=== PATIENT | male | born 1960 | race Caucasian/White ===

== ENCOUNTER 2022-04-01 06:54 | Inpatient (IN) | payer OTHER, BC ==
[~2022-04-01] VITALS: Ht 175.3 cm; Wt 87.2 kg
[~2022-04-01 06:54] MED LIST: GABA800 PO; LORA2; METH5 PO; METO25ER; METO25ER PO; METO50 PO; MORP15ER; OXYC10ER PO; SERT50; TRAM50
[2022-04-01] MEDS ORDERED: JARDIANCE25 MG PO (07:26)
[2022-04-01] MEDS ORDERED: METF500 PO (07:26)
[2022-04-01] MEDS ORDERED: METO25 PO (07:26)
[2022-04-01] MEDS ORDERED: PREG200 PO (07:27)
[2022-04-01] MEDS ORDERED: ELIQUIS5 M2 PO (07:27)
[2022-04-01] MEDS ORDERED: ATOR40TA PO (07:27)
[2022-04-01 08:15] LABS: BASOPHILS ABSOLUTE AUTO 0.09 K/mm3 (0.00-0.23); BASOPHILS PERCENT AUTO 1 % (0-2); EOSINOPHILS ABSOLUTE AUTO 0.03 K/mm3 (0.00-0.68); EOSINOPHILS PERCENT AUTO 0 % (0-6); Hematocrit 38.3 % (37.0-53.0); Hemoglobin 12.8 g/dL (13.5-17.5); IMMATURE GRAN ABSOLUTE AUTO 0.09 K/mm3 (0.00-0.10); IMMATURE GRAN PERCENT AUTO 1 % (0-1); LYMPHOCYTES ABSOLUTE AUTO 0.99 K/mm3 (0.84-5.20); LYMPHOCYTES PERCENT AUTO 6 % (21-46); MONOCYTES ABSOLUTE AUTO 1.36 K/mm3 (0.16-1.47); MONOCYTES PERCENT AUTO 8 % (4-13); Mean Corpuscular HGB Conc 33.4 g/dL (31.5-36.5); Mean Corpuscular Volume 87 fL (80-100); Mean Platelet Volume 10.8 fL (9.1-12.4); NEUTROPHILS ABSOLUTE AUTO 14.51 K/mm3 (1.96-9.15); NEUTROPHILS PERCENT AUTO 85 % (41-73); Platelet Count 279 K/mm3 (150-400); RDW Coefficient Variation 13.3 % (11.7-14.2); RDW Standard Deviation 42.5 fL (35.1-46.3); Red Blood Cell Count 4.41 M/mm3 (4.30-5.90); White Blood Cell Count 17.07 K/mm3 (4.00-11.30)
[2022-04-01 08:45] LABS: Bun/Creatinine Ratio 22.9 (12.0-20.0); C-REACTIVE PROTEIN, EXT RANGE 17.7 mg/dL (0.000-0.300); Calcium, Blood 9.3 mg/dL (8.5-10.1); Creatinine, Blood 0.83 mg/dL (0.60-1.20); Magnesium, Blood 1.9 mg/dL (1.6-2.4); Potassium, Blood 4.2 mmol/L (3.5-5.5)
--- NOTE | 2022-04-01 18:42 | NUR ---
SHIFT SUMMARY PT S/P FOR AMPUTATION OF ALL TOES ON L FOOT DUE TO DM ULCER/OSTEOMYELITIS. PT IS TO BE NON-WEIGHT BEARING ON THE L FOOT. PT IS A/O X4 BUT FORGETFUL AT TIMES. TOLERATING PO INTAKE WELL AND VOIDING. VSS.
--- NOTE | 2022-04-01 22:47 | NUR ---
BLOOD SUGAR PT'S HS BLOOD SUGAR WAS 353, GAVE 4 UNITS HUMALOG AND NOTIFIED PROVIDER. NO NEW ORDERS
[2022-04-02 05:05] LABS: BASOPHILS ABSOLUTE AUTO 0.04 K/mm3 (0.00-0.23); BASOPHILS PERCENT AUTO 0 % (0-2); EOSINOPHILS PERCENT AUTO 0 % (0-6); Hematocrit 37.3 % (37.0-53.0); Hemoglobin 12.4 g/dL (13.5-17.5); IMMATURE GRAN ABSOLUTE AUTO 0.07 K/mm3 (0.00-0.10); IMMATURE GRAN PERCENT AUTO 1 % (0-1); LYMPHOCYTES ABSOLUTE AUTO 1.23 K/mm3 (0.84-5.20); LYMPHOCYTES PERCENT AUTO 9 % (21-46); MONOCYTES ABSOLUTE AUTO 1.04 K/mm3 (0.16-1.47); MONOCYTES PERCENT AUTO 7 % (4-13); Mean Corpuscular HGB Conc 33.2 g/dL (31.5-36.5); Mean Corpuscular Volume 87 fL (80-100); Mean Platelet Volume 10.6 fL (9.1-12.4); NEUTROPHILS ABSOLUTE AUTO 11.84 K/mm3 (1.96-9.15); NEUTROPHILS PERCENT AUTO 83 % (41-73); Platelet Count 325 K/mm3 (150-400); RDW Coefficient Variation 13.3 % (11.7-14.2); RDW Standard Deviation 43.3 fL (35.1-46.3); Red Blood Cell Count 4.27 M/mm3 (4.30-5.90); White Blood Cell Count 14.22 K/mm3 (4.00-11.30)
[2022-04-02 06:22] LABS: Albumin, Blood 2.8 g/dL (3.4-5.0); Albumin/Globulin Ratio 0.6 (0.8-1.8); Bilirubin, Total 0.4 mg/dL (0.1-1.0); Bun/Creatinine Ratio 23.7 (12.0-20.0); Calcium, Blood 9.2 mg/dL (8.5-10.1); Creatinine, Blood 0.85 mg/dL (0.60-1.20); Globulin, Blood 4.9 g/dL (2.2-4.0); Potassium, Blood 3.8 mmol/L (3.5-5.5); Total Protein, Blood 7.7 g/dL (6.4-8.2)
--- NOTE | 2022-04-02 06:37 | NUR ---
SHIFT SUMMARY A&OX4, BUT CAN BE FORGETFUL. COOPERATIVE WITH CARE. NO ACUTE CHANGES. PT DID NOT NEED PAIN COVERAGE THIS SHIFT. VOIDING USING BEDSIDE URINAL. TOLERATING PO INTAKE. NICKY WRAP TO FOOT C/D/I. CALLS APPROPRIATELY, CALL LIGHT WITHIN REACH.
[2022-04-02] MEDS ORDERED: VISBIOME 112.51 EACH PO (14:23)
[2022-04-02] MEDS ORDERED: AMOCLA875 PO (14:24)
--- NOTE | 2022-04-02 16:18 | NUR ---
SHIFT SUMMARY POD1 L TMA, A/OX4, VSS, TOLERATING PO, PAIN MANAGED WITHOUT PAIN MEDICATIONS, ABLE TO WALK WITH FWW. DISUSSED DISCHARGE INFORMATION WITH THE PATIENT AND HIS INCLUDING HOME CARE, MEDICATIONS, HOME HEALTH REFERRAL, FOLLOW UP APPOINTMENTS, AND CONTACT INFORAMTION SHOULD Q UESTIONS COME UP AFTER DISCHARGE. NO QUESTIONS AT THIS TIME, PROVIDED 2 ADDITIONAL NICKY WRAPS TO KEEP DRESSINGS CLEAN. IV ACCESS REMOVED AND NO OTHER DEVICES IN PLACE. PT ESCORTED OUT VIA WC TO PRIVATE AUTO TO GO HOME.
== END 2022-04-02 16:08 | disposition home health service (06) | DRG 854 ==
LOC: ER 06:54 → ERHOLD 11:46 → SURS 11:46
PROVIDERS: Podiatrist Foot & Ankle Surgery; Student in an Organized Health Care Education/Training Program; ADMIT Internal Medicine
PROC: 0Y6N0ZB Detachment at Left Foot, Partial 2nd Ray, Open Approach (ICD-10-PCS; 2022-04-01)
PROC: 0Y6N0ZC Detachment at Left Foot, Partial 3rd Ray, Open Approach (ICD-10-PCS; 2022-04-01)
PROC: 0Y6N0ZD Detachment at Left Foot, Partial 4th Ray, Open Approach (ICD-10-PCS; 2022-04-01)
PROC: 0Y6N0ZF Detachment at Left Foot, Partial 5th Ray, Open Approach (ICD-10-PCS; 2022-04-01)
PROC: 3E03329 Introduction of Other Anti-infective into Peripheral Vein, Percutaneous Approach (ICD-10-PCS; 2022-04-01)
PROC: 0Y6N0Z9 Detachment at Left Foot, Partial 1st Ray, Open Approach (ICD-10-PCS; principal; 2022-04-01 08:30)
DX: A40.1 Sepsis due to streptococcus, group B (principal); E11.52 Type 2 diabetes mellitus with diabetic peripheral angiopathy with gangrene; E87.1 Hypo-osmolality and hyponatremia; M86.172 Other acute osteomyelitis, left ankle and foot; L03.116 Cellulitis of left lower limb; L97.529 Non-pressure chronic ulcer of other part of left foot with unspecified severity; E11.621 Type 2 diabetes mellitus with foot ulcer; Z96.641 Presence of right artificial hip joint; E11.42 Type 2 diabetes mellitus with diabetic polyneuropathy; I25.10 Atherosclerotic heart disease of native coronary artery without angina pectoris; I48.91 Unspecified atrial fibrillation; F31.9 Bipolar disorder, unspecified; Z88.8 Allergy status to other drugs, medicaments and biological substances; Z88.5 Allergy status to narcotic agent; Z87.891 Personal history of nicotine dependence; Z79.84 Long term (current) use of oral hypoglycemic drugs; Z79.01 Long term (current) use of anticoagulants; Z79.899 Other long term (current) drug therapy
CPT/HCPCS: 36415; 73701; 80048; 80053; 82947; 83605; 83735; 85025; 85651; 86140; 87070; 87075; 87076; 87147; 87205; 96365-59; 96367-59; 97110; 97116; 97161; 99285-25; A9270; J0330; J0692; J1100; J1885; J2405; J2704; J2765; J2795; J3010; J3370; J7030; J7050; J7120; Q9967

== ENCOUNTER 2022-04-20 00:19 | Day surgery (SDC) | payer BC ==
[~2022-04-20 00:19] MED LIST changes: +AMOCLA875 PO; +ATOR40TA PO; +ELIQUIS5 M2 PO; +JARDIANCE25 MG PO; +METF500 PO; +METO25 PO; +PREG200 PO; +VISBIOME 112.51 EACH PO
== END 2022-04-20 22:38 | disposition home or self-care (01) ==
LOC: WOUND 00:19
DX: E11.621 Type 2 diabetes mellitus with foot ulcer (principal); E11.21 Type 2 diabetes mellitus with diabetic nephropathy; L97.822 Non-pressure chronic ulcer of other part of left lower leg with fat layer exposed; T87.81 Dehiscence of amputation stump
CPT/HCPCS: A9270; G0463

== ENCOUNTER 2022-04-27 01:42 | Day surgery (SDC) | payer BC | END 2022-04-27 22:33 | disposition home or self-care (01) | LOC: WOUND 01:42 | DX: T87.81 Dehiscence of amputation stump (principal); E11.621 Type 2 diabetes mellitus with foot ulcer; E11.21 Type 2 diabetes mellitus with diabetic nephropathy; E11.40 Type 2 diabetes mellitus with diabetic neuropathy, unspecified | CPT/HCPCS: A9270 ==

== ENCOUNTER 2022-05-04 01:12 | Day surgery (SDC) | payer BC | END 2022-05-05 22:37 | disposition home or self-care (01) | LOC: WOUND 01:12 | DX: T87.81 Dehiscence of amputation stump (principal); E11.621 Type 2 diabetes mellitus with foot ulcer; L97.526 Non-pressure chronic ulcer of other part of left foot with bone involvement without evidence of necrosis; E11.21 Type 2 diabetes mellitus with diabetic nephropathy | CPT/HCPCS: A9270; G0463 ==

== ENCOUNTER 2022-05-11 00:04 | Day surgery (SDC) | payer BC | END 2022-05-11 22:35 | disposition home or self-care (01) | LOC: WOUND 00:04 | DX: E11.621 Type 2 diabetes mellitus with foot ulcer (principal); L97.522 Non-pressure chronic ulcer of other part of left foot with fat layer exposed; T87.81 Dehiscence of amputation stump; Y83.5 Amputation of limb(s) as the cause of abnormal reaction of the patient, or of later complication, without mention of misadventure at the time of the procedure; E11.21 Type 2 diabetes mellitus with diabetic nephropathy | CPT/HCPCS: A9270 ==

== ENCOUNTER 2022-05-18 01:40 | Day surgery (SDC) | payer BC | END 2022-05-18 23:06 | disposition home or self-care (01) | LOC: WOUND 01:40 | DX: E11.621 Type 2 diabetes mellitus with foot ulcer (principal); E11.21 Type 2 diabetes mellitus with diabetic nephropathy | CPT/HCPCS: G0463 ==

== ENCOUNTER 2022-05-25 00:43 | Day surgery (SDC) | payer BC | END 2022-05-25 22:46 | disposition home or self-care (01) | LOC: WOUND 00:43 | DX: E11.621 Type 2 diabetes mellitus with foot ulcer (principal); L97.522 Non-pressure chronic ulcer of other part of left foot with fat layer exposed; E11.21 Type 2 diabetes mellitus with diabetic nephropathy; I25.10 Atherosclerotic heart disease of native coronary artery without angina pectoris; Z95.1 Presence of aortocoronary bypass graft | CPT/HCPCS: A9270 ==

== ENCOUNTER 2022-06-08 01:52 | Day surgery (SDC) | payer BC | END 2022-06-08 23:03 | disposition home or self-care (01) | LOC: WOUND 01:52 | DX: E11.621 Type 2 diabetes mellitus with foot ulcer (principal); E11.21 Type 2 diabetes mellitus with diabetic nephropathy; L97.509 Non-pressure chronic ulcer of other part of unspecified foot with unspecified severity | CPT/HCPCS: G0463 ==

== ENCOUNTER 2022-06-15 02:17 | Day surgery (SDC) | payer BC | END 2022-06-15 22:40 | disposition home or self-care (01) | LOC: WOUND 02:17 | DX: T87.89 Other complications of amputation stump (principal); E11.621 Type 2 diabetes mellitus with foot ulcer; E11.21 Type 2 diabetes mellitus with diabetic nephropathy ==

== ENCOUNTER 2022-06-29 02:18 | Day surgery (SDC) | payer BC | END 2022-06-29 22:43 | disposition home or self-care (01) | LOC: WOUND 02:18 | DX: T87.89 Other complications of amputation stump (principal); E11.621 Type 2 diabetes mellitus with foot ulcer; E11.21 Type 2 diabetes mellitus with diabetic nephropathy; T87.81 Dehiscence of amputation stump | CPT/HCPCS: G0463 ==

== ENCOUNTER 2022-07-06 00:06 | Day surgery (SDC) | payer BC | END 2022-07-06 22:57 | disposition home or self-care (01) | LOC: WOUND 00:06 | DX: E11.621 Type 2 diabetes mellitus with foot ulcer (principal); L97.522 Non-pressure chronic ulcer of other part of left foot with fat layer exposed; T87.81 Dehiscence of amputation stump; E11.21 Type 2 diabetes mellitus with diabetic nephropathy; Z89.432 Acquired absence of left foot | CPT/HCPCS: G0463 ==

== ENCOUNTER 2022-07-13 00:56 | Day surgery (SDC) | payer BC | END 2022-07-13 22:52 | disposition home or self-care (01) | LOC: WOUND 00:56 | DX: E11.621 Type 2 diabetes mellitus with foot ulcer (principal); L97.522 Non-pressure chronic ulcer of other part of left foot with fat layer exposed; T87.81 Dehiscence of amputation stump; E11.21 Type 2 diabetes mellitus with diabetic nephropathy; Z89.432 Acquired absence of left foot; E11.40 Type 2 diabetes mellitus with diabetic neuropathy, unspecified; I25.10 Atherosclerotic heart disease of native coronary artery without angina pectoris; Z95.1 Presence of aortocoronary bypass graft | CPT/HCPCS: A9270 ==

== ENCOUNTER 2022-07-20 03:31 | Day surgery (SDC) | payer BC | END 2022-07-20 22:36 | disposition home or self-care (01) | LOC: WOUND 03:31 | DX: E11.621 Type 2 diabetes mellitus with foot ulcer (principal); L97.522 Non-pressure chronic ulcer of other part of left foot with fat layer exposed; E11.21 Type 2 diabetes mellitus with diabetic nephropathy; T87.81 Dehiscence of amputation stump; Z89.432 Acquired absence of left foot; E11.40 Type 2 diabetes mellitus with diabetic neuropathy, unspecified; I25.10 Atherosclerotic heart disease of native coronary artery without angina pectoris; Z95.1 Presence of aortocoronary bypass graft | CPT/HCPCS: A9270 ==

== ENCOUNTER 2022-07-27 01:57 | Day surgery (SDC) | payer BC | END 2022-07-27 22:55 | disposition home or self-care (01) | LOC: WOUND 01:57 | DX: E11.621 Type 2 diabetes mellitus with foot ulcer (principal); L97.522 Non-pressure chronic ulcer of other part of left foot with fat layer exposed; T87.81 Dehiscence of amputation stump; Y83.8 Other surgical procedures as the cause of abnormal reaction of the patient, or of later complication, without mention of misadventure at the time of the procedure; E11.21 Type 2 diabetes mellitus with diabetic nephropathy; Z89.432 Acquired absence of left foot | CPT/HCPCS: G0463 ==

== ENCOUNTER 2022-08-03 00:40 | Day surgery (SDC) | payer BC | END 2022-08-04 22:39 | disposition home or self-care (01) | LOC: WOUND 00:40 | DX: T87.81 Dehiscence of amputation stump (principal); E11.621 Type 2 diabetes mellitus with foot ulcer; L97.522 Non-pressure chronic ulcer of other part of left foot with fat layer exposed; E11.21 Type 2 diabetes mellitus with diabetic nephropathy; Y83.9 Surgical procedure, unspecified as the cause of abnormal reaction of the patient, or of later complication, without mention of misadventure at the time of the procedure; Z89.432 Acquired absence of left foot | CPT/HCPCS: G0463 ==

== ENCOUNTER 2022-08-10 01:17 | Day surgery (SDC) | payer BC | END 2022-08-12 22:34 | disposition home or self-care (01) | LOC: WOUND 01:17 | DX: E11.621 Type 2 diabetes mellitus with foot ulcer (principal); L97.522 Non-pressure chronic ulcer of other part of left foot with fat layer exposed; T87.81 Dehiscence of amputation stump; E11.21 Type 2 diabetes mellitus with diabetic nephropathy; Z89.432 Acquired absence of left foot; I25.10 Atherosclerotic heart disease of native coronary artery without angina pectoris; Z95.1 Presence of aortocoronary bypass graft | CPT/HCPCS: G0463 ==

== ENCOUNTER 2022-08-17 02:27 | Day surgery (SDC) | payer BC | END 2022-08-19 22:48 | disposition home or self-care (01) | LOC: WOUND 02:27 | DX: E11.621 Type 2 diabetes mellitus with foot ulcer (principal); E11.21 Type 2 diabetes mellitus with diabetic nephropathy; T87.81 Dehiscence of amputation stump; Z89.432 Acquired absence of left foot | CPT/HCPCS: A9270; G0463 ==

== ENCOUNTER 2022-10-26 01:27 | Day surgery (SDC) | payer BC | END 2022-10-26 22:51 | disposition home or self-care (01) | LOC: WOUND 01:27 | DX: E11.621 Type 2 diabetes mellitus with foot ulcer (principal); I25.10 Atherosclerotic heart disease of native coronary artery without angina pectoris; Z95.1 Presence of aortocoronary bypass graft; Z87.891 Personal history of nicotine dependence; Z88.8 Allergy status to other drugs, medicaments and biological substances; Z88.5 Allergy status to narcotic agent; T87.81 Dehiscence of amputation stump; E11.40 Type 2 diabetes mellitus with diabetic neuropathy, unspecified | CPT/HCPCS: G0463 ==

== ENCOUNTER 2022-11-02 00:41 | Day surgery (SDC) | payer BC | END 2022-11-02 22:35 | disposition home or self-care (01) | LOC: WOUND 00:41 | DX: E11.621 Type 2 diabetes mellitus with foot ulcer (principal); L97.522 Non-pressure chronic ulcer of other part of left foot with fat layer exposed; I87.2 Venous insufficiency (chronic) (peripheral); I25.10 Atherosclerotic heart disease of native coronary artery without angina pectoris; Z95.1 Presence of aortocoronary bypass graft | CPT/HCPCS: A9270 ==

== ENCOUNTER 2022-11-09 02:24 | Day surgery (SDC) | payer BC | END 2022-11-09 22:49 | disposition home or self-care (01) | LOC: WOUND 02:24 | DX: T87.81 Dehiscence of amputation stump (principal); E11.621 Type 2 diabetes mellitus with foot ulcer | CPT/HCPCS: G0463 ==

== ENCOUNTER 2022-11-14 02:46 | Day surgery (SDC) | payer BC | END 2022-11-14 22:42 | disposition home or self-care (01) | LOC: WOUND 02:46 | DX: E11.621 Type 2 diabetes mellitus with foot ulcer (principal); L97.522 Non-pressure chronic ulcer of other part of left foot with fat layer exposed; I25.10 Atherosclerotic heart disease of native coronary artery without angina pectoris; T87.81 Dehiscence of amputation stump; Z95.1 Presence of aortocoronary bypass graft; E11.40 Type 2 diabetes mellitus with diabetic neuropathy, unspecified | CPT/HCPCS: G0463 ==

== ENCOUNTER 2022-11-28 00:53 | Day surgery (SDC) | payer BC | END 2022-11-28 22:57 | disposition home or self-care (01) | LOC: WOUND 00:53 | DX: E11.621 Type 2 diabetes mellitus with foot ulcer (principal); L97.522 Non-pressure chronic ulcer of other part of left foot with fat layer exposed; I87.2 Venous insufficiency (chronic) (peripheral); I25.10 Atherosclerotic heart disease of native coronary artery without angina pectoris; Z95.1 Presence of aortocoronary bypass graft; T87.81 Dehiscence of amputation stump ==

== ENCOUNTER 2022-11-30 01:43 | Day surgery (SDC) | payer BC | END 2022-11-30 22:44 | disposition home or self-care (01) | LOC: WOUND 01:43 | DX: E11.621 Type 2 diabetes mellitus with foot ulcer (principal); L97.522 Non-pressure chronic ulcer of other part of left foot with fat layer exposed; T87.81 Dehiscence of amputation stump; I25.10 Atherosclerotic heart disease of native coronary artery without angina pectoris; Z95.1 Presence of aortocoronary bypass graft ==

== ENCOUNTER 2022-12-07 00:36 | Day surgery (SDC) | payer BC | END 2022-12-07 23:06 | disposition home or self-care (01) | LOC: WOUND 00:36 | DX: E11.621 Type 2 diabetes mellitus with foot ulcer (principal); L97.522 Non-pressure chronic ulcer of other part of left foot with fat layer exposed; T87.81 Dehiscence of amputation stump; Y83.8 Other surgical procedures as the cause of abnormal reaction of the patient, or of later complication, without mention of misadventure at the time of the procedure; E11.40 Type 2 diabetes mellitus with diabetic neuropathy, unspecified ==

== ENCOUNTER 2022-12-12 04:45 | Day surgery (SDC) | payer BC | END 2022-12-12 22:38 | disposition home or self-care (01) | LOC: WOUND 04:45 | DX: E11.621 Type 2 diabetes mellitus with foot ulcer (principal); L97.522 Non-pressure chronic ulcer of other part of left foot with fat layer exposed; E11.40 Type 2 diabetes mellitus with diabetic neuropathy, unspecified; T87.81 Dehiscence of amputation stump; I25.10 Atherosclerotic heart disease of native coronary artery without angina pectoris; Z95.1 Presence of aortocoronary bypass graft ==

== ENCOUNTER 2022-12-13 08:38 | Day surgery (SDC) | payer BC | END 2022-12-13 22:36 | disposition home or self-care (01) | LOC: WOUND 08:38 | DX: E11.621 Type 2 diabetes mellitus with foot ulcer (principal); L97.522 Non-pressure chronic ulcer of other part of left foot with fat layer exposed; T87.81 Dehiscence of amputation stump; E11.40 Type 2 diabetes mellitus with diabetic neuropathy, unspecified; I25.10 Atherosclerotic heart disease of native coronary artery without angina pectoris; Z95.1 Presence of aortocoronary bypass graft ==

== ENCOUNTER 2022-12-28 00:26 | Day surgery (SDC) | payer BC | END 2022-12-28 22:43 | disposition home or self-care (01) | LOC: WOUND 00:26 | DX: E11.621 Type 2 diabetes mellitus with foot ulcer (principal); L97.522 Non-pressure chronic ulcer of other part of left foot with fat layer exposed; E11.40 Type 2 diabetes mellitus with diabetic neuropathy, unspecified; I25.10 Atherosclerotic heart disease of native coronary artery without angina pectoris; T87.81 Dehiscence of amputation stump; Z95.1 Presence of aortocoronary bypass graft | CPT/HCPCS: G0463 ==

== ENCOUNTER 2023-01-04 02:26 | Day surgery (SDC) | payer BC | END 2023-01-04 22:40 | disposition home or self-care (01) | LOC: WOUND 02:26 | DX: E11.621 Type 2 diabetes mellitus with foot ulcer (principal); L97.522 Non-pressure chronic ulcer of other part of left foot with fat layer exposed; I25.10 Atherosclerotic heart disease of native coronary artery without angina pectoris; T87.81 Dehiscence of amputation stump; I25.2 Old myocardial infarction; Z95.1 Presence of aortocoronary bypass graft | CPT/HCPCS: G0463 ==

== ENCOUNTER 2023-01-11 05:06 | Day surgery (SDC) | payer BC | END 2023-01-11 22:36 | disposition home or self-care (01) | LOC: WOUND 05:06 | DX: Z09 Encounter for follow-up examination after completed treatment for conditions other than malignant neoplasm (principal); Z86.31 Personal history of diabetic foot ulcer; Z89.422 Acquired absence of other left toe(s); I25.10 Atherosclerotic heart disease of native coronary artery without angina pectoris; Z95.1 Presence of aortocoronary bypass graft | CPT/HCPCS: G0463 ==

== ENCOUNTER 2023-03-02 16:10 | Inpatient (IN) | payer OTHER, BC ==
[~2023-03-02] VITALS: Ht 172.7 cm; Wt 95.2 kg
[2023-03-02 17:00] LABS: BASOPHILS ABSOLUTE AUTO 0.05 K/mm3 (0.00-0.23); BASOPHILS PERCENT AUTO 0 % (0-2); EOSINOPHILS ABSOLUTE AUTO 0.04 K/mm3 (0.00-0.68); EOSINOPHILS PERCENT AUTO 0 % (0-6); Hematocrit 39.8 % (37.0-53.0); Hemoglobin 13.1 g/dL (13.5-17.5); IMMATURE GRAN ABSOLUTE AUTO 0.25 K/mm3 (0.00-0.10); IMMATURE GRAN PERCENT AUTO 1 % (0-1); LYMPHOCYTES ABSOLUTE AUTO 1.06 K/mm3 (0.84-5.20); LYMPHOCYTES PERCENT AUTO 5 % (21-46); MONOCYTES ABSOLUTE AUTO 1.81 K/mm3 (0.16-1.47); MONOCYTES PERCENT AUTO 9 % (4-13); Mean Corpuscular HGB Conc 32.9 g/dL (31.5-36.5); Mean Corpuscular Volume 88 fL (80-100); Mean Platelet Volume 11.9 fL (9.1-12.4); NEUTROPHILS ABSOLUTE AUTO 17.38 K/mm3 (1.96-9.15); NEUTROPHILS PERCENT AUTO 85 % (41-73); Platelet Count 188 K/mm3 (150-400); RDW Coefficient Variation 15.2 % (11.7-14.2); RDW Standard Deviation 48.9 fL (35.1-46.3); Red Blood Cell Count 4.51 M/mm3 (4.30-5.90); White Blood Cell Count 20.59 K/mm3 (4.00-11.30)
[2023-03-02 17:14] LABS: Albumin, Blood 3.3 g/dL (3.4-5.0); Albumin/Globulin Ratio 0.7 (0.8-1.8); Bilirubin, Total 0.7 mg/dL (0.1-1.0); Bun/Creatinine Ratio 15.7 (12.0-20.0); Calcium, Blood 9.5 mg/dL (8.5-10.1); Creatinine, Blood 1.02 mg/dL (0.60-1.20); Globulin, Blood 4.7 g/dL (2.2-4.0); Potassium, Blood 3.8 mmol/L (3.5-5.5)
[2023-03-02 17:53] LABS: Influenza A, PCR NEGATIVE (NEGATIVE); Influenza B, PCR NEGATIVE (NEGATIVE); Resp Syncytial Virus, PCR NEGATIVE (NEGATIVE); SARS-Cov-2 (COVID-19) PCR, MMC NEGATIVE (NEGATIVE)
[2023-03-02 20:55] VITALS: BP 117/69
--- NOTE | 2023-03-02 20:55 | NUR ---
NEW ADMIT. PATIENT NEW ADMIT TO ROOM 310 FROM THE ER. PATIENT ARRIVED TO FLOOR BY [facility]. PATIENT SELF TRANSFERED WITH SBA FROM THE [facility] TO HOSPITAL BED. PATIENT ARRIVED WEARING A SOFT BOOT ON HIS LEFT FOOT-THIS IS THE FOOT WITH THE DIABETIC ULCER. BANDAGE TO FOOT WAS CHANGED IN THE ED. PATIENT CAME TO THE ROOM WITH AT SIDE AND PERSONAL BELONGINGS BAG.
[2023-03-02] MEDS ORDERED: PIOG30 PO (21:06)
[2023-03-02] MEDS ORDERED: ALOGLIPTIN25 M7 PO (21:06)
[2023-03-03 03:52] VITALS: BP 137/86
--- NOTE | 2023-03-03 04:27 | NUR ---
SHIFT SUMMARY. PATIENT IS A/O X4 WITH SOME CONFUSION. PATIENT IS PLEASANT, COOPERATIVE WITH CARE, CALLS APPROPRIATELY, AND ABLE TO MAKE HIS NEEDS KNOWN. PATIENT USING THE URINAL AT BEDSIDE. PATIENT 1 PERSON ASSIST TO THE BSC. PATIENT HAS A SOFT BOOT TO THE LEFT FOOT FOR HIS LEFT FOOT DIABETIC ULCER. PATIENT IS NPO AT MIDNIGHT. PATIENT PROVIDED WITH MOUTH MOISURIZER AND MOUTH SWAPS FOR DRY MOUTH R/T NPO. PATIENT HAS HAD RIGHT HIP PAIN AND A DECREASE IN MOBILITY THAT HAD BROUGHT HIM INTO THE HOSPITAL TO BE SEEN THIS ADMIT. PATIENT REPORTS HE HAS ONLY BEEN ABLE TO SLEEP A COUPLE HOURS THIS EVENING. WOUND CLEANED AND DRESSING CHANGED-PICTURES OBTAIN IN CHART. BED IS LOCKED IN THE LOWEST POSITION WITH CALL LIGHT IN REACH.
[2023-03-03 05:33] LABS: BASOPHILS ABSOLUTE AUTO 0.07 K/mm3 (0.00-0.23); BASOPHILS PERCENT AUTO 0 % (0-2); EOSINOPHILS ABSOLUTE AUTO 0.01 K/mm3 (0.00-0.68); EOSINOPHILS PERCENT AUTO 0 % (0-6); Hematocrit 34.5 % (37.0-53.0); Hemoglobin 11.2 g/dL (13.5-17.5); IMMATURE GRAN ABSOLUTE AUTO 0.62 K/mm3 (0.00-0.10); IMMATURE GRAN PERCENT AUTO 3 % (0-1); LYMPHOCYTES PERCENT AUTO 5 % (21-46); MONOCYTES ABSOLUTE AUTO 1.99 K/mm3 (0.16-1.47); MONOCYTES PERCENT AUTO 10 % (4-13); Mean Corpuscular HGB 29.2 pg (26.0-34.0); Mean Corpuscular HGB Conc 32.5 g/dL (31.5-36.5); Mean Corpuscular Volume 90 fL (80-100); Mean Platelet Volume 11.9 fL (9.1-12.4); NEUTROPHILS ABSOLUTE AUTO 16.12 K/mm3 (1.96-9.15); NEUTROPHILS PERCENT AUTO 81 % (41-73); Platelet Count 157 K/mm3 (150-400); RDW Coefficient Variation 15.4 % (11.7-14.2); RDW Standard Deviation 50.9 fL (35.1-46.3); Red Blood Cell Count 3.83 M/mm3 (4.30-5.90); White Blood Cell Count 19.81 K/mm3 (4.00-11.30)
[2023-03-03 05:38] LABS: International Normalized Ratio 0.98; Prothrombin Time Results 10.3 Sec (9.7-11.5)
[2023-03-03 05:58] LABS: Albumin, Blood 2.6 g/dL (3.4-5.0); Albumin/Globulin Ratio 0.6 (0.8-1.8); Bilirubin, Total 0.5 mg/dL (0.1-1.0); Bun/Creatinine Ratio 18.5 (12.0-20.0); Calcium, Blood 8.7 mg/dL (8.5-10.1); Creatinine, Blood 0.92 mg/dL (0.60-1.20); Globulin, Blood 4.3 g/dL (2.2-4.0); Potassium, Blood 3.7 mmol/L (3.5-5.5); Total Protein, Blood 6.9 g/dL (6.4-8.2)
[2023-03-03 07:17] VITALS: BP 124/67
[2023-03-03 16:38] VITALS: BP 137/70
--- NOTE | 2023-03-03 18:29 | NUR ---
SHIFT SUMMARY PT AOX4, USES THE URINAL INDEPENDENTLY. MRI DONE TODAY, NO NEW ORDERS. RENEWALS SPECIALIST CONSULTED TODAY, WOUND ORDERS IN THE CHART. WOUND CARE DONE THIS SHIFT BY THIS NURSE. PT GOT A BED BATH THIS SHIFT. HAS BEEN AT THE , SHE IS A NURSE AT THE [place]. PT HAS HAD NO COMPLAINTS OF PAIN/N/V/CP OR PRESSURE. HE IS RESTING COMFORTABLY. CALL LIGHT WITHIN REACH, BED IN THE LOWEST POSITION. WILL REPORT TO ONCOMING NURSE.
[2023-03-03 20:39] VITALS: BP 135/82
[2023-03-04] VITALS (9 sets, daily range): BP systolic 103–135; BP diastolic 64–82
--- NOTE | 2023-03-04 02:35 | NUR ---
DURING PATIENT VITALS PATIENTS HEART RATE JUMPED UP INTO THE 170'S-DROPPED DOWN INTO THE 20'S AND QUICKLY JUMPED UP INTO THE 70-80'S AND CONTINUED TO FLEXUATE.PATIENT REPORTS FEELING "WHOOZY" DR. HARGROVE CALLED AND NOTIFIED-DR. HARGROVE ORDERED TO HAVE TELE PLACED AND TO NOTIFY IF SITUATION PERSISTS.
--- NOTE | 2023-03-04 03:31 | NUR ---
CALLED FITTING ROOM OPERATOR AT 0312-PATIENT SUSTAINING IN THE 140-150'S.
--- NOTE | 2023-03-04 03:31 | NUR ---
HOSPITALIST CALLED AT 0318. NOTIFIED THAT PATIENT IS SUSTAINING IN THE 140-150'S WITH SOB. PATIENT DENIES CHEST PAIN/PRESSURE/TIGHTNESS. DR. HARGROVE PUT IN ORDERS FOR CARDIZEM PUSH WITH PARAMETERS OF A SBP >100 AND MORNING DOSE OF METOPROLOL TO BE GIVEN NOW.
--- NOTE | 2023-03-04 03:43 | NUR ---
PATIENT IS ORDERED FOR A CARDIZEM PUSH. 0343- B/P PRIOR TO CARDIZEM PUSH -118/72 0348-CARDIZEM PUSH GIVEN. 0355-B/P-POST CARDIZEM PUSH 134/85. 0356-CALLED TELE MONITOR FOR RATE-PATIENT DROPPED DOWN TO 125 BEAT AND JUMPED BACK UP TO 150 AND SUSTAINING. 0359-B/P CHECK-142/91. CONTACTED AT 0408 AND NOTIFIED OF PATIENTS DROP TO 125 BEATS AND JUMP TO 150 AND SUSTAINING. TO ORDER CARDIZEM DRIP AND PATIENT TO BE MOVED TO PCU.
--- NOTE | 2023-03-04 04:27 | NUR ---
SPOUSE CALLED. LILIBETH CALLED WITH NO ANSWER. VOICEMAIL LEFT OF CURRENT SITUATION AND PLAN TO TRANSFER TO PCU.
--- NOTE | 2023-03-04 05:10 | NUR ---
SHIFT SUMMARY. PATIENT A/O X4. INDEPENDT WITH URINAL STANDING AT BEDSIDE. PATIENT IS ABLE TO MAKE HIS NEEDS KNOWN AND CALLS APPROPRIATELY. PATIENT HAS SOME INSOMNIA THAT HER REPORTS IS NORMAL FOR HIM. TONIGHT PATIENT HAS BEEM IN ROOM AWAKE WATCHING TV W/ INTERMITTENT PERIODS OF REST. DURING MORNING B/P CHECK PATIENT HAD IRREGULAR HEART RATE-SEE PREVIOUS NOTES. PATIENT TRANSFERED TO U-6 AT 0510.
[2023-03-04 05:37] LABS: BASOPHILS ABSOLUTE AUTO 0.08 K/mm3 (0.00-0.23); BASOPHILS PERCENT AUTO 0 % (0-2); EOSINOPHILS ABSOLUTE AUTO 0.03 K/mm3 (0.00-0.68); EOSINOPHILS PERCENT AUTO 0 % (0-6); Hematocrit 35.7 % (37.0-53.0); Hemoglobin 11.6 g/dL (13.5-17.5); IMMATURE GRAN ABSOLUTE AUTO 0.16 K/mm3 (0.00-0.10); IMMATURE GRAN PERCENT AUTO 1 % (0-1); LYMPHOCYTES ABSOLUTE AUTO 1.14 K/mm3 (0.84-5.20); LYMPHOCYTES PERCENT AUTO 6 % (21-46); MONOCYTES ABSOLUTE AUTO 1.94 K/mm3 (0.16-1.47); MONOCYTES PERCENT AUTO 10 % (4-13); Mean Corpuscular HGB 28.9 pg (26.0-34.0); Mean Corpuscular HGB Conc 32.5 g/dL (31.5-36.5); Mean Corpuscular Volume 89 fL (80-100); Mean Platelet Volume 11.5 fL (9.1-12.4); NEUTROPHILS ABSOLUTE AUTO 16.01 K/mm3 (1.96-9.15); NEUTROPHILS PERCENT AUTO 83 % (41-73); Platelet Count 208 K/mm3 (150-400); RDW Coefficient Variation 15.6 % (11.7-14.2); RDW Standard Deviation 50.9 fL (35.1-46.3); Red Blood Cell Count 4.01 M/mm3 (4.30-5.90); White Blood Cell Count 19.36 K/mm3 (4.00-11.30)
[2023-03-04 05:55] LABS: Anion Gap 10 mmol/L (6-16); Blood Urea Nitrogen 17 mg/dL (8-24); Bun/Creatinine Ratio 23.7 (12.0-20.0); CO2, Blood 18 mmol/L (21-32); Calcium, Blood 8.4 mg/dL (8.5-10.1); Chloride, Blood 110 mmol/L (98-108); Creatinine, Blood 0.72 mg/dL (0.60-1.20); Glomerular Filtration Rate 103 (60-); Glucose, Blood 171 mg/dL (70-99); Potassium, Blood 3.6 mmol/L (3.5-5.5); Sodium, Blood 138 mmol/L (136-145); Vancomycin, Trough 10.6 ug/mL (5.0-10.0)
--- NOTE | 2023-03-04 18:54 | NUR ---
SHIFT SUMMARY: PT HAS BEEN A&Ox4, ABLE TO MAKE NEEDS KNOWN AND COOPERATIVE W/CARE. PT REPORTS FEELING ANXIOUS WHILE HERE AT THE HOSPITAL, PROVIDER NOTIFIED W/ORDERS PLACED AND PT MEDICATED PER EMAR, REPORTS IMPROVEMENT. PT DENIES SOB, O2 SATS >92% ON RA. PT DENIES CP, AFIB ON MONITOR W/RATE MOSTLY 90s-110s, CARDIZEM INFUSION CHANGED TO PO AND PT IS TOLERATING WELL SO FAR. DRESSING TO LLE HAS BEEN CHANGED PER ORDERS. PT HAS BEEN USING URINAL W/OUT DIFFICULTY. AT THIS TIME, PT IS RESTING IN BED W/LIGHTS LOW AND CALL LIGHT IN REACH. WILL CONTINUE TO MONITOR AND TREAT ACCORDINGLY UNTIL CHANGE OF SHIFT.
[2023-03-04 21:41] LABS: Vancomycin, Trough 18.5 ug/mL (5.0-10.0)
[2023-03-05] VITALS (11 sets, daily range): BP systolic 111–149; BP diastolic 56–81
--- NOTE | 2023-03-05 01:42 | NUR ---
ASSUMPTION OF CARE NOTE: GAVE REPORT TO RESIDENTIAL CARPENTER JOHANN TO BE TAKING OVER CARE OF PT. ALL QUESTIONS ANSWERED, ALEXIA.
[2023-03-05 04:25] LABS: BASOPHILS ABSOLUTE AUTO 0.07 K/mm3 (0.00-0.23); BASOPHILS PERCENT AUTO 0 % (0-2); EOSINOPHILS ABSOLUTE AUTO 0.03 K/mm3 (0.00-0.68); EOSINOPHILS PERCENT AUTO 0 % (0-6); Hematocrit 29.7 % (37.0-53.0); Hemoglobin 9.9 g/dL (13.5-17.5); IMMATURE GRAN ABSOLUTE AUTO 0.13 K/mm3 (0.00-0.10); IMMATURE GRAN PERCENT AUTO 1 % (0-1); LYMPHOCYTES ABSOLUTE AUTO 1.42 K/mm3 (0.84-5.20); LYMPHOCYTES PERCENT AUTO 9 % (21-46); MONOCYTES ABSOLUTE AUTO 1.63 K/mm3 (0.16-1.47); MONOCYTES PERCENT AUTO 10 % (4-13); Mean Corpuscular HGB 29.4 pg (26.0-34.0); Mean Corpuscular HGB Conc 33.3 g/dL (31.5-36.5); Mean Corpuscular Volume 88 fL (80-100); Mean Platelet Volume 11.9 fL (9.1-12.4); NEUTROPHILS ABSOLUTE AUTO 13.03 K/mm3 (1.96-9.15); NEUTROPHILS PERCENT AUTO 80 % (41-73); Platelet Count 198 K/mm3 (150-400); RDW Coefficient Variation 15.8 % (11.7-14.2); RDW Standard Deviation 51.2 fL (35.1-46.3); Red Blood Cell Count 3.37 M/mm3 (4.30-5.90); White Blood Cell Count 16.31 K/mm3 (4.00-11.30)
[2023-03-05 04:57] LABS: Albumin, Blood 2.2 g/dL (3.4-5.0); Albumin/Globulin Ratio 0.5 (0.8-1.8); Bilirubin, Total 0.4 mg/dL (0.1-1.0); Bun/Creatinine Ratio 20.4 (12.0-20.0); Calcium, Blood 8.2 mg/dL (8.5-10.1); Creatinine, Blood 0.79 mg/dL (0.60-1.20); Globulin, Blood 4.2 g/dL (2.2-4.0); Potassium, Blood 3.5 mmol/L (3.5-5.5); Total Protein, Blood 6.4 g/dL (6.4-8.2)
--- NOTE | 2023-03-05 05:53 | NUR ---
PATIENT AT ASSUMPTION OF CARE ~ 0130, HR WAS STILL CLIMBING UP AND UNUSUAL DAY SHIFT DOSING OF CARDIZEM LEFT PATIENT WITHOUT COVERAGE, 1 X NOW DOSE. PATIENT TOLERATED VSS, NO CONCERNS FROM THIS RN DRESSING CHANGE TO FOOT, UP TO RECLINER, CLARISSA DENIES CHETS PAIN PRESSURE OR SOB.
--- NOTE | 2023-03-05 12:39 | NUR ---
WOUND CARE NEW PHOTO AND ASSESSMENT IN HARD CHART. MINIMAL DRAINAGE NOTED. WOUND BED IS PALE WITH 80% SLOUGH. ADIPOSE TISSUE NOTED. WOULD NOT RECOMMEND WOUND VAC PLACEMENT THERE IS NOT ENOUGH VIABLE TISSUE IN WOUND BED. CONTINUED WITH 1/" IODOFORM PACKING/ABD/ROLLED GAUZE/NICKY
--- NOTE | 2023-03-05 16:04 | NUR ---
SHIFT SUMMARY: PT CONTINUES A&Ox4, COOPERATIVE W/CARE AND ABLE TO MAKE NEEDS KNOWN. PT DENIES SOB, O2 SATS >93% ON RA. PT DENIES CP, AFIB CONTINUES ON MONITOR W/RATE 80s-90s. PT HAS BEEN SBA, IS USING URINAL W/MINIMAL ASSISTANCE. SHOWER COMPLETED THIS SHIFT. WOUND CARE CONSULT COMPLETED W/DRESSING CHANGE, NO WOUND VAC RECOMMENDED AT THIS TIME. PT AND SPOUSE EXPRESSING DESIRE TO MANAGE IV ABX AT HOME, PROVIDER IS AWARE AND STATES IT IS DEPENDENT ON TYPE OF ABX NEEDED WELL INSURANCE APPROVAL, COULD TAKE A COUPLE DAYS TO DEVELOP A PLAN. AT THIS TIME, PT IS RESTING IN BEDSIDE RECLINER W/CALL LIGHT IN REACH. WILL CONTINUE TO MONITOR AND TREAT ACCORDINGLY UNTIL CHANGE OF SHIFT.
[2023-03-05 21:32] LABS: Vancomycin, Trough 25.3 ug/mL (5.0-10.0)
[2023-03-06] VITALS (25 sets, daily range): BP systolic 102–163; BP diastolic 52–105
--- NOTE | 2023-03-06 06:30 | NUR ---
SHIFT SUMMARY A/Ox4 AND COOPERATIVE WITH CARE. ANSWERS QUESTIONS APPROPRIATELY AND ABLE TO MAKE HIS NEEDS KNOWN. NO ACUTE EVENTS OVERNIGHT FOR PT WAS ABLE TO SLEEP MAJORITY OF THE SHIFT. CARDIAC, REMAINS IN AFIB RANGING 90-110'S WITH NO C/O CP, PRESSURE, OR DIZZINESS. SBP HAS BEEN STABLE RANGING 130-150'S. RESPIRATORY, MAINTAINS SPO2 >92% ON RA WITH NO REPORTS OF SOB OR DYSPNEA. INCREASED WORK OF BREATHING NOTED WITH MODERATE EXERTION HOWEVER. GI/, ABLE TO INDEPENDETLY USE URINAL AT BEDSIDE VOIDING LIGHT YELLOW URINE. NO BM FOR ME THIS SHIFT. LEFT FOOT DRESSING REMAINS C/D/I WITH PROTECTIVE BOOT IN PLACE. PT HAS REMAINED NPO SINCE MDN FOR PROCEDURE THIS AM. ASSESSED PT FOR RISKS OF ANY IGNITION SOURCES WELL BEHAVIORS FOR INCREASED RISKS OF FIRE DANGER. PT EDUCATED ON COMMON SOURCES OF IGNITION WELL NEED TO KEEP A SAFE ENVIRONMENT. PT VOICED UNDERSTANDING. NO NEW ORDERS AT THIS TIME, WILL REPORT TO ONCOMING RN. ALEXIA ARREAGA OF THIS NOTE
--- NOTE | 2023-03-06 12:25 | NUR ---
PT LEFT PCU FOR PROCEDURE VIA GURNEY AND ON RA.
--- NOTE | 2023-03-06 13:34 | NUR ---
RAC IV SITE SLUGGISH, DC'D IV SITE. LFA IV SITE PATENT. FLUSHED WITH 10CC NS. CALLED TO ICU CHARGE FOR POWER GLIDE PLACEMENT. NEW POWER GLIDE PLACED RAMIRO.
--- NOTE | 2023-03-06 15:37 | NUR ---
REPORT FROM COMMUNICATIONS MEDIA PROFESSOR AT 1518
--- NOTE | 2023-03-06 15:57 | NUR ---
PT ARRIVED FROM PACU AT 1555 VIA GURNEY. PT ON 2L NC AT TIME OF ARRIVAL. NO ACUTE DISTRESS NOTED. PT SLID TO HOSPITAL BED VIA SLIDE SHEET WITH ASSISTANCE OF VALE, CASH MANAGEMENT OFFICER AND PT . PT ABLE TO ASSIST WITH ROLL TO REMOVE EXTRA BEDDING. NO PAIN NOTED AT THIS TIME. LEFT FOOT DRESSED WITH NICKY WRAP, C/D/I. PT PROVIDIED FOOD PER REQUEST.
--- NOTE | 2023-03-06 16:49 | NUR ---
TRANSFER UPDATE REPORT GIVEN TO MED FLOOR RN AT 1610. PT TRANSFERED AT 1645 VIA HOSPITAL BED. PT BELONGINGS IN BAGS AND TRANSFERED WITH PT. PT PRESENT AT TIME OF TRANSFER. PT MEDS IN GREEN MEDICATION BAG AND TRNAGERED WITH PT.
--- NOTE | 2023-03-06 18:13 | NUR ---
SHIFT SUMMARY/TRANSFER NOTE- PT TRANSFERED FROM PCU 6 POST OP AFTER AN I&D WITH BONE BIOPSY. PT ARRIVED WITH ELEVATED RESP RATE OF 32. PT IN BED AND WAS SLID BY STAFF TO THE NEW BED, WAITED FOR PT TO RELAX AND RESP RATE TO RECOVER, HOWEVER THE PT RESP RATE IS STILL 32 AND O2 SATS 92% ON ROOM AIR. PLACED THE PT ON 2L VIA NC AND CALLED RT TO EVALUATE. PT NOT IN ANY OVERT DISTRESS YET. RT DEEPAK CAME TO EVALUATE THE PT. NO RESP ISSUES IN Hx PT RESP RATE 34, FLUID BALANCE SHOWS PT IS VOLUME OVER. CALLED DR ORTIZ AND RECIEVED AN ORDER FOR OT IV LASIX 20MG NOW.
[2023-03-07] VITALS (9 sets, daily range): BP systolic 101–146; BP diastolic 58–76
--- NOTE | 2023-03-07 04:06 | NUR ---
SHIFT SUMMARY PATIENT A/Ox4, PLEASANT/COOPERATIVE. DENIES PAIN AT TIME OF ASSESSMENT. CONTINUES ON TELE, AFIB 80-90s. INDEPENDENT IN BED, 1 ASSIST TO STAND/PIVOT WITH FWW. NO ACUTE CHANGES NOTED OVERNIGHT. CALL LIGHT IN REACH.
[2023-03-07 04:51] LABS: BASOPHILS ABSOLUTE AUTO 0.06 K/mm3 (0.00-0.23); BASOPHILS PERCENT AUTO 0 % (0-2); EOSINOPHILS ABSOLUTE AUTO 0.07 K/mm3 (0.00-0.68); EOSINOPHILS PERCENT AUTO 1 % (0-6); Hemoglobin 9.3 g/dL (13.5-17.5); IMMATURE GRAN ABSOLUTE AUTO 0.26 K/mm3 (0.00-0.10); IMMATURE GRAN PERCENT AUTO 2 % (0-1); LYMPHOCYTES ABSOLUTE AUTO 1.52 K/mm3 (0.84-5.20); LYMPHOCYTES PERCENT AUTO 11 % (21-46); MONOCYTES ABSOLUTE AUTO 1.33 K/mm3 (0.16-1.47); MONOCYTES PERCENT AUTO 9 % (4-13); Mean Corpuscular HGB 29.2 pg (26.0-34.0); Mean Corpuscular HGB Conc 33.2 g/dL (31.5-36.5); Mean Corpuscular Volume 88 fL (80-100); Mean Platelet Volume 11.1 fL (9.1-12.4); NEUTROPHILS ABSOLUTE AUTO 11.18 K/mm3 (1.96-9.15); NEUTROPHILS PERCENT AUTO 78 % (41-73); NRBC ABSOLUTE 0.02 K/mm3 (0.00-0.02); NRBC Auto 0.1 /100 WBC (0.0-0.2); Platelet Count 284 K/mm3 (150-400); RDW Coefficient Variation 15.7 % (11.7-14.2); RDW Standard Deviation 50.1 fL (35.1-46.3); Red Blood Cell Count 3.18 M/mm3 (4.30-5.90); White Blood Cell Count 14.42 K/mm3 (4.00-11.30)
[2023-03-07 05:12] LABS: Bun/Creatinine Ratio 23.6 (12.0-20.0); Calcium, Blood 8.4 mg/dL (8.5-10.1); Creatinine, Blood 0.89 mg/dL (0.60-1.20); Potassium, Blood 3.2 mmol/L (3.5-5.5)
--- NOTE | 2023-03-07 08:07 | NUR ---
morning assessment- NOTED THE PT HAS HAD A CHANGE IN RESPIRATORY STATUS. LAST NIGHT LUNG SOUNDS WERE TIGHT WITH ELEVATED RESP RATE AND SOME AUDIBLE WHEEZES. THIS MORNING THE PT HAS DEFINITE WHEEZES, ELEVATED RESP RATE 28-30 AND CRACKLES BILATERALLY.
--- NOTE | 2023-03-07 08:19 | NUR ---
CALLED DR ORTIZ- SPOKE TO HER ABOUT PT CURRENT RESPIRATORY STATUS. RECIEVED ORDR FOR OT DOSE OF IV LASIX.
--- NOTE | 2023-03-07 10:50 | NUR ---
CALLED DR ORTIZ FOR ORDER CLARIFICATION- NEW OT ORDER FOR 20MG IV LASIX AND 40MEQ PO POTASSIUM. PT ALREADY RECIEVED OT 20MEQ OF POTASSIUM AND 20MG IV LASIX. RECIEVED ORDER TO GIVE 20 ADDITIONAL MG IV LASIX FOR TOTAL OF 40 AND DC THE ADDITIONAL POTASSIUM.
--- NOTE | 2023-03-07 13:32 | NUR ---
WOUND CARE TELEPHONE ORDER RECIEVED TO PLACE WOUND VAC PER DR. MUKHERJEE. PLAN TO PLACE [facility] 03/08/2023 PRIOR TO DC. WOUND PHOTO AND ASSESSMENT GIVEN TO CM FOR VAC AUTH.
[2023-03-07 17:35] LABS: Vancomycin, Trough 11.9 ug/mL (5.0-10.0)
--- NOTE | 2023-03-07 18:22 | NUR ---
CALLED DR ORTIZ- PT RESP RATE IS DOWN BELOW 30 CURRENTLY BUT STILL WITH INCREASED WOB. BNP CAME BACK OVER 700. RECIEVED ORDER FOR 20 MG IV LASIX NOW
--- NOTE | 2023-03-07 19:48 | NUR ---
SHIFT SUMMARY- PT ALERT AND ORIENTED. SPOUSE PLACED A CONDOM CATH ON THE PT THIS MORNING, THE PT HAS BEEN RECIEVING IV LASIX FREQUENTLY FOR HIS WOB AND INCREASED RATE OF BREATHING. SPOKE TO DR ORTIZ THIS EVENING, SHE IS AWARE OF THE ELEVATED BNP, AND THE PT RECIEVED IV LASIX. PT IN BED, CALL LIGHT IN REACH, PT DENIES FEELING SOB, HE DOES NOT APPEAR TO BE IN DISTRESS, HOWEVER IT WOULD NOT TAKE MUCH TO PUT HIM IN DISTRESS. MD AWARE, THIS IS HOW THE PT HAS BEEN SINCE ARRIVING ON MED FLOOR YESTERDAY EVENING. LUNG SOUNDS WERE WHEEZY AND CRACKLY T/O THE DAY, MD AWARE, CHEST XRAY COMPLETED. REPORT COMPLETED WITH NIGHT RN.
--- NOTE | 2023-03-08 04:15 | NUR ---
SHIFT SUMMARY PATIENT A/Ox4, PLEASANT/COOPERATIVE. WITHOUT ANY COMPLAINTS NOR NEEDS EXPRESSED AT TIME OF ASSESSMENT. STATES FEELING MUCH BETTER TODAY, BREATHING EASIER. LUNGS CONTINUE TO HAVE CRACKLES, AND PATIENT STILL HAS WHEEZING THOUGH LESS INTENSE. CONTINUES ON TELE, AFib 80s MOST OF SHIFT. INDEPENDENT IN BED, 1 ASSIST TO STAND/PIVOT WITH FWW. NO ACUTE CHANGES NOTED OVERNIGHT. CALL LIGHT IN REACH.
[2023-03-08 04:38] VITALS: BP 133/82
[2023-03-08 05:13] LABS: BASOPHILS ABSOLUTE AUTO 0.05 K/mm3 (0.00-0.23); BASOPHILS PERCENT AUTO 0 % (0-2); EOSINOPHILS ABSOLUTE AUTO 0.13 K/mm3 (0.00-0.68); EOSINOPHILS PERCENT AUTO 1 % (0-6); Hemoglobin 9.2 g/dL (13.5-17.5); IMMATURE GRAN ABSOLUTE AUTO 0.31 K/mm3 (0.00-0.10); IMMATURE GRAN PERCENT AUTO 3 % (0-1); LYMPHOCYTES ABSOLUTE AUTO 1.97 K/mm3 (0.84-5.20); LYMPHOCYTES PERCENT AUTO 16 % (21-46); MONOCYTES ABSOLUTE AUTO 1.21 K/mm3 (0.16-1.47); MONOCYTES PERCENT AUTO 10 % (4-13); Mean Corpuscular HGB 29.1 pg (26.0-34.0); Mean Corpuscular HGB Conc 32.9 g/dL (31.5-36.5); Mean Corpuscular Volume 89 fL (80-100); Mean Platelet Volume 10.9 fL (9.1-12.4); NEUTROPHILS ABSOLUTE AUTO 8.95 K/mm3 (1.96-9.15); NEUTROPHILS PERCENT AUTO 71 % (41-73); Platelet Count 337 K/mm3 (150-400); RDW Coefficient Variation 15.5 % (11.7-14.2); RDW Standard Deviation 50.5 fL (35.1-46.3); Red Blood Cell Count 3.16 M/mm3 (4.30-5.90); White Blood Cell Count 12.62 K/mm3 (4.00-11.30)
[2023-03-08 05:48] LABS: Bun/Creatinine Ratio 21.3 (12.0-20.0); Calcium, Blood 8.5 mg/dL (8.5-10.1); Creatinine, Blood 0.89 mg/dL (0.60-1.20); Potassium, Blood 3.2 mmol/L (3.5-5.5)
[2023-03-08 07:37] VITALS: BP 139/74
[2023-03-08 11:32] VITALS: BP 117/74
--- NOTE | 2023-03-08 11:41 | NUR ---
WOUND CARE PT DECLINING HH. HOLD WOUND VAC UNTIL WOUND CLINIC APPT ESTABLISHED. WOUND CLEANSED WITH NS, 1/4' PLAIN PACKING STRIP LOOSELY PACKED INTO WOUND AND UNDERMINNING. WHITE ANTIBIOTIC BEADS NOTED. SKIN PREP TO PERIWOUND COVERED WITH ABD/GAUZE/NICKY. MESSAGE LEFT WITH DR. MUKHERJEE OFFICE NOTIFIED OF WOUND VAC HOLD AND CURRENT WOUND CARE
[2023-03-08] MEDS ORDERED: DILT30 PO (15:05)
--- NOTE | 2023-03-08 15:24 | NUR ---
SHIFT SUMMARY MR ALFARO IS OX4. HIS VISITED FOR MUCH OF THE DAY. C/O VERY MILD DISCOMFORT TO FOOT, NOT REQUIRING PAIN MEDICATIONS. WOUND REDRESSED BY RICARDO WOUND CARE NURSE AND NO WOUND VAC AT THIS TIME D/T PT AND DECLING HOME HEALTH AND NO AVAIABILITY AT THIS TIME TO GET A TIMELY WOUND CLINIC APPOINTMENT. POST OP SHOE AT BEDSIDE AND PT WORKED WITH PHYSICAL THERAPY. EDUCATED ON INCENTIVE SPIROMETRY AND DECENT TECHNIQUE. OXYGEN DISCONTINUED AND SATS IN THE 90S ON ROOM AIR WITH NO SOB. [facility] BED LOW, CALL LIGHT IN REACH.
[2023-03-08 16:10] VITALS: BP 125/65
[2023-03-08 19:34] VITALS: BP 115/64
--- NOTE | 2023-03-09 03:38 | NUR ---
SHIFT SUMMARY PATIENT A/Ox4, PLEASANT, NO COMPLAINTS VERBALIZED. STATES FEELING BETTER AND STATED GETTING BETTER SLEEP, HOPES TO BE DISCHARGING HOME SOON. NO ACUTE CHANGES NOTED OVERNIGHT, CALL LIGHT IN REACH.
[2023-03-09 04:19] VITALS: BP 135/90
[2023-03-09 04:20] VITALS: BP 135/90
[2023-03-09 05:17] LABS: BASOPHILS ABSOLUTE AUTO 0.04 K/mm3 (0.00-0.23); BASOPHILS PERCENT AUTO 0 % (0-2); EOSINOPHILS ABSOLUTE AUTO 0.12 K/mm3 (0.00-0.68); EOSINOPHILS PERCENT AUTO 1 % (0-6); Hematocrit 28.9 % (37.0-53.0); Hemoglobin 9.4 g/dL (13.5-17.5); IMMATURE GRAN ABSOLUTE AUTO 0.21 K/mm3 (0.00-0.10); IMMATURE GRAN PERCENT AUTO 2 % (0-1); LYMPHOCYTES ABSOLUTE AUTO 1.96 K/mm3 (0.84-5.20); LYMPHOCYTES PERCENT AUTO 15 % (21-46); MONOCYTES ABSOLUTE AUTO 1.21 K/mm3 (0.16-1.47); MONOCYTES PERCENT AUTO 9 % (4-13); Mean Corpuscular HGB 29.1 pg (26.0-34.0); Mean Corpuscular HGB Conc 32.5 g/dL (31.5-36.5); Mean Corpuscular Volume 90 fL (80-100); Mean Platelet Volume 11.1 fL (9.1-12.4); NEUTROPHILS ABSOLUTE AUTO 9.72 K/mm3 (1.96-9.15); NEUTROPHILS PERCENT AUTO 73 % (41-73); Platelet Count 407 K/mm3 (150-400); RDW Coefficient Variation 15.5 % (11.7-14.2); RDW Standard Deviation 50.5 fL (35.1-46.3); Red Blood Cell Count 3.23 M/mm3 (4.30-5.90); White Blood Cell Count 13.26 K/mm3 (4.00-11.30)
[2023-03-09 06:21] LABS: Bun/Creatinine Ratio 22.6 (12.0-20.0); Calcium, Blood 8.5 mg/dL (8.5-10.1); Creatinine, Blood 0.93 mg/dL (0.60-1.20); Magnesium, Blood 2.1 mg/dL (1.6-2.4); Potassium, Blood 3.3 mmol/L (3.5-5.5)
[2023-03-09 07:29] VITALS: BP 119/78
[2023-03-09 11:35] VITALS: BP 111/77
[2023-03-09 15:34] VITALS: BP 141/75
--- NOTE | 2023-03-09 15:59 | NUR ---
SHIFT SUMMARY MR ALFARO HAS 1/10 LEFT FOOT MILD DISCOMFORT AND OCCASIONAL SHARP NEUROPATHY PAIN THAT IS MORE SEVERE BUT SHORT LASTING. HE IS ON ROOM AIR AND MOSTLY HAS NO SOB WITH OCCASIONAL SHORT EPISODES OF FEELING BREATHLESS THAT RESOLVES QUICKLY. LEFT FOOT WOUND CLEANSED, REPACKED AND REDRESSED THIS MORNING. PT HAS NO DISCOMFORT ON DRESSING CHANGE. AWAITING ECHO. AFIB ON TELEMETRY, NO CALLS FROM SHRIMPING BOAT CAPTAIN. OOBTC. CALL LIGHT IN REACH.
[2023-03-09 19:46] VITALS: BP 113/64
[2023-03-10 03:26] VITALS: BP 142/87
[2023-03-10 05:04] LABS: Hematocrit 27.2 % (37.0-53.0); Hemoglobin 8.9 g/dL (13.5-17.5); Mean Corpuscular HGB 29.1 pg (26.0-34.0); Mean Corpuscular HGB Conc 32.7 g/dL (31.5-36.5); Mean Corpuscular Volume 89 fL (80-100); Mean Platelet Volume 10.6 fL (9.1-12.4); Platelet Count 424 K/mm3 (150-400); RDW Coefficient Variation 15.4 % (11.7-14.2); RDW Standard Deviation 50.7 fL (35.1-46.3); Red Blood Cell Count 3.06 M/mm3 (4.30-5.90); White Blood Cell Count 13.24 K/mm3 (4.00-11.30)
[2023-03-10 05:48] LABS: Bun/Creatinine Ratio 25.4 (12.0-20.0); Calcium, Blood 8.6 mg/dL (8.5-10.1); Creatinine, Blood 0.95 mg/dL (0.60-1.20); Potassium, Blood 3.6 mmol/L (3.5-5.5)
--- NOTE | 2023-03-10 07:19 | NUR ---
SHIFT SUMMARY. NO ACUTE CHANGES. PATIENT IS A/O X3-4. PATIENT IS PLEASANT, CALLS APPROPRIATELY AND IS ABLE TO MAKE HIS NEEDS KNOWN. TAKES MEDS WHOLE WITH WATER. DIABETIC FOOT WOUND DRESSING C/D/I. BED IS LOCKED IN THE LOWEST POSITION WITH JULIAN LIGHT IN REACH. NO S/S OF DISTRESS NOTED.
[2023-03-10 07:32] VITALS: BP 138/93
[2023-03-10 11:36] VITALS: BP 115/62
--- NOTE | 2023-03-10 14:41 | NUR ---
SHIFT REPORT MR ALFARO HAS BEEN UP INDEPENDENTLY IN THE ROOM USING THE KNEE REST MARIE. HE DOESN'T LIKE TO USE THE POST OP SHOE AND HAS NOT BEEN PUTTING ANY WEIGHT ON HIS FOOT. UP TO THE SHOWER TODAY. LEFT FOOT WOUND CLEANSED AND REPACKED AFTER SHOWER. ECHO DONE THIS AM. CALL FROM [employer] THAT PT CONVERTED TO SINUS RHYTHM THIS MORNING. DR DASILVA NOTIFIED. AT BEDSIDE. BED LOW, CALL LIGHT IN REACH.
[2023-03-10 15:00] VITALS: BP 114/73
--- NOTE | 2023-03-10 15:31 | NUR ---
REPORT TO VALENTINO ALAMO FOR TRANSFER OF CARE
[2023-03-10 19:08] VITALS: BP 122/85
[2023-03-11 03:58] VITALS: BP 123/72
--- NOTE | 2023-03-11 06:50 | NUR ---
SHIFT SUMMARY NOC PT A/O X 4. PLEASANT AND COOPERATIVE WITH CARE, BUT ANXIOUS AND MEDICATED FOR ANXIETY PER EMAR. PT STILL HAS DRESSING IN PLACE AND PROTECTIVE BOOD ON L FOOT, PT HAS ONLY COMPLAINT OF MINIMAL PAIN AND REQUESTS NO PAIN RX. PT POSSIBLE DISCHARGE HOME WITH [facility] FOR OUTPAITENT ABX THERAPY. PT HS CBG 278 AND SCHEDULED 30 UNITS LONG ACTING INSULIN ADMININSTERED. PT ON TELE RUNNING SINUS RHYTHM @ 80 BPM. PT HAS SLEPT FOR MOST OF SHIFT AND REPORTS EAGERNESS TO GO HOME. PT IS CURRENTLY RESTING WITH BED IN LOWEST POSITION, AND CALL LIGHT WITHIN REACH.
[2023-03-11 07:40] VITALS: BP 106/86
[2023-03-11 13:08] VITALS: BP 120/72
[2023-03-11 15:53] VITALS: BP 133/66
--- NOTE | 2023-03-11 19:54 | NUR ---
SUMMARY- PT A/O X4, USES CALL LIGHT. GOT UP TO BATHROOM WITH PHYSICAL THERAPY, USING VELCRO SHOE, PARTIAL WT BEAR ON HEEL. MILDLY UNSTEADY, NEEDS SBA TO ENSURE BALANCE FOR NOW. PT DENIES ANY PAIN IN LLE RELATED TO NEUROPATHY. DRESSING CHANGED 1430, IRRIGATING WITH NS, USING 1/4"IODAFORM GAUZE, FLUFF, ABD, KERLEX AND NICKY. PLAN FOR PT TO DC ONCE PICC PLACED, NO ONE WAS AVAILABLE TODAY. REPORTED TO NOC RN
[2023-03-12 04:43] VITALS: BP 124/74
--- NOTE | 2023-03-12 06:21 | NUR ---
REPORT RECEIVED VERIFIED PT A/O X4 APPROPRIATE AND MAKES NEEDS KNOWN, PT GIVEN ALL MEDS PER REQUEST SO HE CAN SLEEP. WILL CALL IF NEEDING ANYTHING. 1230 ANTIBIOTICS AND MEDICATION GIVEN NO S/S OF DISTRESS NO C/O PAIN JUST WANTS TO SLEEP, ASSISTED WITH URINAL PT UP AT SIDE OF BED, DOING WELL. TEMP UP GIVEN TYLENOL.
[2023-03-12 07:31] VITALS: BP 144/76
[2023-03-12 08:38] LABS: BASOPHILS ABSOLUTE AUTO 0.06 K/mm3 (0.00-0.23); BASOPHILS PERCENT AUTO 0 % (0-2); EOSINOPHILS ABSOLUTE AUTO 0.13 K/mm3 (0.00-0.68); EOSINOPHILS PERCENT AUTO 1 % (0-6); Hematocrit 30.8 % (37.0-53.0); Hemoglobin 10.1 g/dL (13.5-17.5); IMMATURE GRAN ABSOLUTE AUTO 0.08 K/mm3 (0.00-0.10); IMMATURE GRAN PERCENT AUTO 1 % (0-1); LYMPHOCYTES ABSOLUTE AUTO 1.62 K/mm3 (0.84-5.20); LYMPHOCYTES PERCENT AUTO 12 % (21-46); MONOCYTES ABSOLUTE AUTO 1.05 K/mm3 (0.16-1.47); MONOCYTES PERCENT AUTO 8 % (4-13); Mean Corpuscular HGB 29.1 pg (26.0-34.0); Mean Corpuscular HGB Conc 32.8 g/dL (31.5-36.5); Mean Corpuscular Volume 89 fL (80-100); Mean Platelet Volume 11.1 fL (9.1-12.4); NEUTROPHILS ABSOLUTE AUTO 10.73 K/mm3 (1.96-9.15); NEUTROPHILS PERCENT AUTO 78 % (41-73); Platelet Count 501 K/mm3 (150-400); RDW Coefficient Variation 15.1 % (11.7-14.2); RDW Standard Deviation 49.2 fL (35.1-46.3); Red Blood Cell Count 3.47 M/mm3 (4.30-5.90); White Blood Cell Count 13.67 K/mm3 (4.00-11.30)
[2023-03-12 08:46] LABS: Bun/Creatinine Ratio 19.7 (12.0-20.0); Calcium, Blood 9.2 mg/dL (8.5-10.1); Creatinine, Blood 0.86 mg/dL (0.60-1.20); Potassium, Blood 4.3 mmol/L (3.5-5.5)
[2023-03-12 12:11] VITALS: BP 125/74
--- NOTE | 2023-03-12 13:28 | NUR ---
WOUND VAC APPLIED. LLE WOUND CLEANSED NS, ONE PIECE WHITE ANTIMICROBIAL GAUZE TO WOUND BED, VAC SET TO CONTINUOUS 120MMHG. PT TOLERATED WELL
[2023-03-12 15:40] VITALS: BP 133/78
--- NOTE | 2023-03-12 17:10 | NUR ---
SUMMARY- PT A/O X4. SBA WALKER, PARTIAL WB L FOOT. FOOT BOOT IN PLACE FOR PROTECTION. WOUND RN PLACED WOUND VAC TODAY. NO FEVERS OR CHILLS TODAY. NO ONE TO PLACE PICC UNTIL SATURDAY. PT UNABLE TO LEAVE UNTIL PICC PLACED FOR SKILLED NURSING ABX TX. BLOOD SUGARS IN THE 200'S WITH 10UNITS HUMALOG WITH EACH MEAL. TOLERATING FOOD AND FLUIDS. FOLLOWING ADA DIET. IN TO VISIT MULT TIMES TOEAY. SUPPORTIVE IN CARE. PT DENIES ANY PAIN AT INCISION SITE. NEUROPATHIC PAIN CONTROLLED WITH DAILY LYRICA. WILL REPORT TO NOC RN
[2023-03-12 19:50] VITALS: BP 131/59
[2023-03-13 04:57] VITALS: BP 159/62
--- NOTE | 2023-03-13 06:46 | NUR ---
REPORT RECEIVED VERIFIED ASSISTED PT TO BATHROOM WITH FWW AND WOUND VAC ATTACHED, PT DID VERY WELL IN TRANSFFERING NO ISSUES AND I FEEL COMFORTABLE ALLOWING HIM TAKE HIMSELF TO BATHROOM. PT MEDICATED FOR ANXIETY HE HAS BEEN VERY APPROPRIATE AND MAKES NEEDS KNOWN. PT TRYING TO GET MUCH SLEEP POSSIBLE, STATES HE NEVER SLEEPS MORE THAN A COUPLE HOURS. WILL CONT WATCHING
[2023-03-13 07:32] VITALS: BP 140/86
[2023-03-13 08:04] LABS: BASOPHILS ABSOLUTE AUTO 0.06 K/mm3 (0.00-0.23); BASOPHILS PERCENT AUTO 0 % (0-2); EOSINOPHILS ABSOLUTE AUTO 0.09 K/mm3 (0.00-0.68); EOSINOPHILS PERCENT AUTO 1 % (0-6); Hematocrit 30.3 % (37.0-53.0); Hemoglobin 10.1 g/dL (13.5-17.5); IMMATURE GRAN ABSOLUTE AUTO 0.07 K/mm3 (0.00-0.10); IMMATURE GRAN PERCENT AUTO 1 % (0-1); LYMPHOCYTES ABSOLUTE AUTO 1.86 K/mm3 (0.84-5.20); LYMPHOCYTES PERCENT AUTO 14 % (21-46); MONOCYTES ABSOLUTE AUTO 1.18 K/mm3 (0.16-1.47); MONOCYTES PERCENT AUTO 9 % (4-13); Mean Corpuscular HGB 29.2 pg (26.0-34.0); Mean Corpuscular HGB Conc 33.3 g/dL (31.5-36.5); Mean Corpuscular Volume 88 fL (80-100); Mean Platelet Volume 10.5 fL (9.1-12.4); NEUTROPHILS PERCENT AUTO 76 % (41-73); Platelet Count 618 K/mm3 (150-400); RDW Coefficient Variation 14.8 % (11.7-14.2); RDW Standard Deviation 47.4 fL (35.1-46.3); Red Blood Cell Count 3.46 M/mm3 (4.30-5.90); White Blood Cell Count 13.66 K/mm3 (4.00-11.30)
[2023-03-13 15:38] VITALS: BP 135/81
--- NOTE | 2023-03-13 18:02 | NUR ---
SHIFT SUMMARY PATIENT ALERT AND INTERACTIVE. PATIENT INDEPENDENT IN THE ROOM AND USING KNEE SCOOTER OUT OF THE ROOM. PICC LINE PLACED. PATIENT TO TRANSFER TO MD FOR INFUSIONS. WOUND VAC IN PLACE. BLOOD SUGARS CONTINUE TO BE IN THE 200'S THROUGHOUT THE DAY. PATIENT STATES HE DOES NOT USE INSULIN AT HOME AND BLOOD SUGARS ARE USUALLY UNDER 150. LUNGS DECREASED. APPETITE WELL. NICKY WRAP RE WRAPPED OVER WOUND VAC AND FOOT FOR PROTECTION. SPOKE WITH DISCHARGE PLANNING REGARDING TRANSFER.
[2023-03-13 19:20] LABS: Influenza A, PCR NEGATIVE (NEGATIVE); Influenza B, PCR NEGATIVE (NEGATIVE); Resp Syncytial Virus, PCR NEGATIVE (NEGATIVE); SARS-Cov-2 (COVID-19) PCR, MMC NEGATIVE (NEGATIVE)
[2023-03-13 19:53] VITALS: BP 97/59
[2023-03-14 03:08] VITALS: BP 118/69
[2023-03-14 04:28] LABS: BASOPHILS ABSOLUTE AUTO 0.04 K/mm3 (0.00-0.23); BASOPHILS PERCENT AUTO 0 % (0-2); EOSINOPHILS PERCENT AUTO 1 % (0-6); Hematocrit 29.3 % (37.0-53.0); Hemoglobin 9.7 g/dL (13.5-17.5); IMMATURE GRAN ABSOLUTE AUTO 0.04 K/mm3 (0.00-0.10); IMMATURE GRAN PERCENT AUTO 0 % (0-1); LYMPHOCYTES ABSOLUTE AUTO 1.55 K/mm3 (0.84-5.20); LYMPHOCYTES PERCENT AUTO 12 % (21-46); MONOCYTES ABSOLUTE AUTO 1.23 K/mm3 (0.16-1.47); MONOCYTES PERCENT AUTO 10 % (4-13); Mean Corpuscular HGB 29.1 pg (26.0-34.0); Mean Corpuscular HGB Conc 33.1 g/dL (31.5-36.5); Mean Corpuscular Volume 88 fL (80-100); Mean Platelet Volume 9.8 fL (9.1-12.4); NEUTROPHILS PERCENT AUTO 77 % (41-73); Platelet Count 614 K/mm3 (150-400); RDW Coefficient Variation 14.7 % (11.7-14.2); RDW Standard Deviation 47.8 fL (35.1-46.3); Red Blood Cell Count 3.33 M/mm3 (4.30-5.90); White Blood Cell Count 12.76 K/mm3 (4.00-11.30)
[2023-03-14 04:47] LABS: Bun/Creatinine Ratio 27.4 (12.0-20.0); Calcium, Blood 8.6 mg/dL (8.5-10.1); Creatinine, Blood 0.91 mg/dL (0.60-1.20); Potassium, Blood 4.1 mmol/L (3.5-5.5)
--- NOTE | 2023-03-14 05:16 | NUR ---
SHIFT SUMMARY NOC PT A/O X 4. PLEASANT AND COOPERATIVE WITH CARE BUT ANXIOUS. ANXIETY TREATED PER EMAR. PT HAS POWER PICC IN GEMMA INSERTED YESTERDAY TO [facility]. PT ALSO HAS WOUND VAC IN PLACE ON LLE @ 120mmHg VACUUM. PT EXPECTED TO TRANSFER TO [facility] TODAY FOR REHAB AND CONITUED IV ABX THERAPY. PT HS CBG 220 NO SHORT ACTING CNI, BUT 30 UNITS SCHEDULED LONG ACTING INSULIN GIVEN. PT IS CURRENTLY RESTING WITH BED IN LOWEST POSITION, AND CALL LIGHT WITHIN REACH.
[2023-03-14 07:45] VITALS: BP 110/67
[2023-03-14] MEDS ORDERED: MELA3 PO (10:33)
[2023-03-14] MEDS ORDERED: CEFAZOLIN2 GM/50 M3 (10:37)
[2023-03-14] MEDS ORDERED: HUMALOG KW100 UNIT/1 (10:40)
--- NOTE | 2023-03-14 13:42 | NUR ---
SHIFT SUMMARY AND DISCHARGE PATIENT DISCHARGED TO [facility]. PATIENT TRANSPORTED BY . PATIENT ALERT AND INTERACTIVE IN THE ROOM. PATIENT EASILY IRRITABLE BUT COOPERATIVE WITH CARE. PATIENT VERBALIZES UNDERSTANDING OF TRANSFER. ASSISTED PATIENT WITH SHOWER AT PATIENT'S REQUEST. L FOOT WOUND STARTED BLEEDING DURING SHOWER. WOUND VAC DRESSING REMOVED. FOOT WOUND CLEANSED WITH WOUND CLEANSER AND DRY DRESSING APPLIED AND SECURED. MACERATION NOTED AROUND WOUND. NO ACTIVE BLEEDING NOTED ONCE WOUND CLEANDED. PICC LINE DRESSING IN PLACE. PICC LINE EASY TO FLUSH AND USED MULTIPLE TIMES BEFORE DISCHARGE. PATIENT USING WALKER OR KNEE SCOOTER WHEN UP AMBULATING IN ROOM. REPORT GIVEN TO AR NURSE.
== END 2023-03-14 13:21 | DRG 477 ==
LOC: ER 16:10 → PCU 18:36 → MEDS 18:36 → PCU 03-04 04:55 → MEDS 03-06 16:46 → ENPENDDIS 03-14 10:11 → MEDS 03-14 13:21
PROVIDERS: Hospitalist; Internal Medicine; Nurse Practitioner Acute Care; Physician Assistant; Podiatrist; ADMIT Hospitalist
PROC: 0Q9P0ZZ Drainage of Left Metatarsal, Open Approach (ICD-10-PCS; 2023-03-03)
PROC: 0QBP0ZZ Excision of Left Metatarsal, Open Approach (ICD-10-PCS; 2023-03-06)
PROC: 0Q9P0ZX Drainage of Left Metatarsal, Open Approach, Diagnostic (ICD-10-PCS; principal; 2023-03-06 14:00)
PROC: 02HV33Z Insertion of Infusion Device into Superior Vena Cava, Percutaneous Approach (ICD-10-PCS; 2023-03-13)
DX: T87.44 Infection of amputation stump, left lower extremity (principal); A41.01 Sepsis due to Methicillin susceptible Staphylococcus aureus; J96.01 Acute respiratory failure with hypoxia; R65.20 Severe sepsis without septic shock; L03.116 Cellulitis of left lower limb; E87.1 Hypo-osmolality and hyponatremia; L02.612 Cutaneous abscess of left foot; E11.52 Type 2 diabetes mellitus with diabetic peripheral angiopathy with gangrene; I96 Gangrene, not elsewhere classified; M86.8X7 Other osteomyelitis, ankle and foot; Y83.5 Amputation of limb(s) as the cause of abnormal reaction of the patient, or of later complication, without mention of misadventure at the time of the procedure; E11.69 Type 2 diabetes mellitus with other specified complication; I48.0 Paroxysmal atrial fibrillation; E11.42 Type 2 diabetes mellitus with diabetic polyneuropathy; F41.9 Anxiety disorder, unspecified; F31.9 Bipolar disorder, unspecified; I25.10 Atherosclerotic heart disease of native coronary artery without angina pectoris; E87.6 Hypokalemia; L97.524 Non-pressure chronic ulcer of other part of left foot with necrosis of bone; G47.00 Insomnia, unspecified; Z89.432 Acquired absence of left foot; E11.621 Type 2 diabetes mellitus with foot ulcer; Z88.8 Allergy status to other drugs, medicaments and biological substances; Z79.84 Long term (current) use of oral hypoglycemic drugs; Z79.01 Long term (current) use of anticoagulants; Z79.899 Other long term (current) drug therapy; Z87.891 Personal history of nicotine dependence; Z79.4 Long term (current) use of insulin; Z79.2 Long term (current) use of antibiotics; Z88.5 Allergy status to narcotic agent; Z11.52 Encounter for screening for COVID-19
CPT/HCPCS: 0241U; 36415; 36569; 71045; 73630; 73721; 80048; 80053; 80202; 82947; 83605; 83735; 83880; 84100; 85025; 85027; 85610; 87040; 87070; 87075; 87077; 87147; 87186; 87205; 88305; 88311; 93005; 93010; 93306; 96361; 96365; 96366; 97110; 97110-CQ; 97116-CQ; 97162; 97530; 97530-CQ; 99284-25; A9270; C1713; C1751; J0690; J0696; J1815; J1940; J2250; J2543; J3370; J7030; J7050; J7120